=== PATIENT | female | born 1940 | race Caucasian/White ===

== ENCOUNTER 2018-10-25 10:39 | Inpatient (IN) | payer MEDICARE, OTHER ==
[2018-10-25 12:16] LABS: ABNORMAL IP MESSAGE 1; HEMOGLOBIN 12.7 g/dl (12.0-16.0); MEAN CORPUSCULAR HEMOGLOBIN 31.1 pg (29.0-33.0); MEAN CORPUSCULAR HGB CONC 31.8 g/dl (32.0-37.0); MEAN PLATELET VOLUME 10.1 fl (7.4-10.4); PLATELET COUNT 110 10^3/UL (140-415); RED BLOOD COUNT 4.08 10^6/ul (4.20-5.40); RED CELL DISTRIBUTION WIDTH 13.8 % (11.5-14.5)
[2018-10-25 12:16] LABS: WHITE BLOOD COUNT 2.6 10^3/ul (4.8-10.8)
[2018-10-25 12:22] LABS: ADD MAN DIFF? YES; POSITIVE DIFF @See below
[2018-10-25 12:27] LABS: INR 2.08; PROTIME 23.5 Sec (11.9-14.9); PT RATIO 1.8
[2018-10-25 12:28] LABS: PARTIAL THROMBOPLASTIN TIME 36.3 Sec (23.0-35.0)
[2018-10-25 12:31] LABS: ALANINE AMINOTRANSFERASE 116 IU/L (13-69); ALBUMIN 4.2 g/dl (3.3-4.9); ALBUMIN/GLOBULIN RATIO 1.16; ALKALINE PHOSPHATASE 160 IU/L (42-121); AMYLASE 113 U/L (11-123); ANION GAP 12 (5-13); ASPARTATE AMINO TRANSFERASE 123 IU/L (15-46); BILIRUBIN,INDIRECT 0.6 mg/dl (0-1.1); BILIRUBIN,TOTAL 0.6 mg/dl (0.2-1.3); BLOOD UREA NITROGEN 54 mg/dl (7-20); CALCIUM 9.1 mg/dl (8.4-10.2); CARBON DIOXIDE 23 mmol/L (21-31); CHLORIDE 108 mmol/L (97-110); CREATININE 2.23 mg/dl (0.44-1.00); GLUCOSE 85 mg/dl (70-220); LIPASE 87 U/L (23-300); POTASSIUM 5.1 mmol/L (3.5-5.1); SODIUM 143 mmol/L (135-144); TOTAL PROTEIN 7.8 g/dl (6.1-8.1)
[2018-10-25] MEDS: IPRATROPIUM (NEB) 0.5 MG/2.5 ML AMP INH (12:40)
[2018-10-25] MEDS: ALBUTEROL 0.5% (NEB) 2.5 MG/0.5 ML AMP INH (12:40)
[2018-10-25 13:00] LABS: ANISOCYTOSIS 1+ (0-0); BAND NEUTROPHILS #M 0.6 10^3/ul (0.0-0.6); BAND NEUTROPHILS % (M) 24 % (0-4); EOSINOPHILS % (M) 2 % (0-7); LYMPHOCYTES #M 0.6 10^3/ul (0.8-2.9); LYMPHOCYTES % (M) 24 % (15-51); MONOCYTES % (M) 1 % (0-11); PLATELET ESTIMATE DECREASED; POIKILOCYTOSIS 1+ (0-0); POLYCHROMASIA 3+ (0-0); SEG NEUT #M 1.3 10^3/ul (1.6-7.5); SEGMENTED NEUTROPHILS (M) % 50 % (39-77); SMUDGE%M 3 % (0-0); TEAR DROP CELLS 1+ (0-0)
[2018-10-25] MEDS ORDERED: ACETAMINOPHEN 325 MG TAB PO (13:30)
[2018-10-25] MEDS ORDERED: ONDANSETRON 4 MG INJ IV ×2 (13:30→14:00)
[2018-10-25 13:46] LABS: B-TYPE NATRIURETIC PEPTIDE 8390 PG/ML (0-450)
[2018-10-25] MEDS ORDERED: HYDROCODONE/APAP (5/325) TAB PO (14:00)
[2018-10-25] MEDS ORDERED: NACL 0.9% 3 ML SYG IV (14:00)
[2018-10-25] MEDS ORDERED: morphine 2 MG INJ IV (14:00)
[2018-10-25] MEDS: FUROSEMIDE 40 MG INJ IV (14:40)
[2018-10-25] MEDS: SOD CHLORIDE 0.9% 500 ML IV (14:41)
[2018-10-25] MEDS: ASPIRIN 325 MG TAB PO (14:41)
[2018-10-25 14:53] LABS: ADD UMIC YES; UR ASCORBIC ACID NEGATIVE (NEGATIVE); UR BACTERIA FEW /HPF (NONE SEEN); UR BILIRUBIN (Dip) NEGATIVE (NEGATIVE); UR BLOOD (Dip) 3+ mg/dL (NEGATIVE); UR CLARITY CLOUDY (CLEAR); UR COLOR YELLOW (YELLOW); UR GLUCOSE (Dip) NEGATIVE (NEGATIVE); UR KETONES (Dip) NEGATIVE (NEGATIVE); UR LEUKOCYTE ESTERASE (Dip) NEGATIVE Leu/ul (NEGATIVE); UR NITRITE (Dip) NEGATIVE (NEGATIVE); UR NONSQUAMOUS EPITHELIAL CELL 1 /HPF (NONE SEEN); UR RBC > 182 /HPF (0-5); UR SPECIFIC GRAVITY (Dip) 1.014 (1.003-1.030); UR SQUAMOUS EPITHELIAL CELL FEW /HPF (FEW); UR TOTAL PROTEIN (Dip) NEGATIVE (NEGATIVE); UR UROBILINOGEN (Dip) NEGATIVE (NEGATIVE); UR WBC 6 /HPF (0-5)
[2018-10-25] MEDS: ACETAMINOPHEN 325 MG TAB PO (16:12)
[2018-10-25] MEDS: SOD CHLORIDE 0.9% 1,000 ML IV (16:12)
[2018-10-25 18:41] LABS: TROPONIN-I 0.284 ng/ml (0.000-0.120)
[2018-10-25 19:41] LABS: CREATININE,URINE RANDOM 176.16 mg/dl (20-320)
[2018-10-25 19:41] LABS: SODIUM,URINE RANDOM 31 mmol/L (30-90)
[2018-10-26] MEDS: PIPER-TAZO 3.375 GM IV (PMX) 100 ML IVPB ×3 (01:11→17:29)
[2018-10-26 01:12] LABS: CREATINE KINASE 192 IU/L (23-200)
[2018-10-26 01:20] LABS: CK INDEX 0.8; CK-MB 1.55 ng/ml (0.0-2.4)
[2018-10-26 01:52] LABS: TROPONIN-I 0.156 ng/ml (0.000-0.120)
[2018-10-26 06:47] LABS: HAAIG REFLEX REFLEX FILED
[2018-10-26 06:49] LABS: WHITE BLOOD COUNT 22.3 10^3/ul (4.8-10.8)
[2018-10-26 06:49] LABS: ABNORMAL IP MESSAGE 1; HEMATOCRIT 33.1 % (37.0-47.0); HEMOGLOBIN 10.6 g/dl (12.0-16.0); MEAN CORPUSCULAR HEMOGLOBIN 31.2 pg (29.0-33.0); MEAN CORPUSCULAR VOLUME 97.4 fl (82.0-101.0); MEAN PLATELET VOLUME 10.2 fl (7.4-10.4); PLATELET COUNT 94 10^3/UL (140-415); RED CELL DISTRIBUTION WIDTH 14.3 % (11.5-14.5)
[2018-10-26 06:58] LABS: ADD MAN DIFF? YES; POSITIVE DIFF @See below
[2018-10-26 07:13] LABS: ALANINE AMINOTRANSFERASE 85 IU/L (13-69); ALBUMIN 3.1 g/dl (3.3-4.9); ALBUMIN/GLOBULIN RATIO 1.19; ALKALINE PHOSPHATASE 69 IU/L (42-121); ANION GAP 8 (5-13); ASPARTATE AMINO TRANSFERASE 69 IU/L (15-46); BILIRUBIN,INDIRECT 0.5 mg/dl (0-1.1); BILIRUBIN,TOTAL 0.5 mg/dl (0.2-1.3); BLOOD UREA NITROGEN 65 mg/dl (7-20); CALCIUM 8.2 mg/dl (8.4-10.2); CARBON DIOXIDE 20 mmol/L (21-31); CHLORIDE 114 mmol/L (97-110); CHOL/HDL RATIO 4.8 RATIO; CHOLESTEROL 155 mg/dl (100-200); CREATININE 2.41 mg/dl (0.44-1.00); GLUCOSE 136 mg/dl (70-220); HDL CHOLESTEROL 32 mg/dl (33-92); LDL CHOLESTEROL,CALCULATED 67 mg/dl; MAGNESIUM 2.2 mg/dl (1.7-2.5); PHOSPHORUS 3.5 mg/dl (2.5-4.9); POTASSIUM 4.1 mmol/L (3.5-5.1); SODIUM 142 mmol/L (135-144); TOTAL PROTEIN 5.7 g/dl (6.1-8.1); TRIGLYCERIDES 281 mg/dl (0-149)
[2018-10-26 07:24] LABS: TROPONIN-I 0.094 ng/ml (0.000-0.120)
[2018-10-26 07:27] LABS: FREE THYROXINE INDEX (Calc) 2.26 ug/ml (0.65-3.89); T3 UPTAKE 45.1 % (23.5-40.5)
[2018-10-26 07:40] LABS: HEPATITIS B SURFACE ANTIGEN NEGATIVE (NEGATIVE)
[2018-10-26 07:41] LABS: CK INDEX 1.1; CREATINE KINASE 305 IU/L (23-200)
[2018-10-26 07:53] LABS: BAND NEUTROPHILS #M 4.2 10^3/ul (0.0-0.6); BAND NEUTROPHILS % (M) 19 % (0-4); BASOPHIL #M 0.4 10^3/ul (0.0-0.0); BASOPHILS % (M) 2 % (0-2); LYMPHOCYTES #M 2.8 10^3/ul (0.8-2.9); LYMPHOCYTES % (M) 13 % (15-51); PLATELET ESTIMATE DECREASED; REACTIVE LYMPHOCYTES #M 0.2 10^3/ul (0.0-0.0); REACTIVE LYMPHOCYTES% (M) 1 % (0-0); SEG NEUT #M 15.4 10^3/ul (1.6-7.5); SEGMENTED NEUTROPHILS (M) % 65 % (39-77); SMUDGE%M 10 % (0-0)
[2018-10-26 07:58] LABS: HEPATITIS B CORE ANTIBODY NEGATIVE (NEGATIVE); HEPATITIS C VIRAL ANTIBODY NEGATIVE (NEGATIVE)
[2018-10-26 08:00] LABS: HEMOGLOBIN A1C 6.1 % (0-5.9)
[2018-10-26 08:17] LABS: FOLATE > 20.0 ng/ml (2.8-20.0)
[2018-10-26] MEDS ORDERED: LOSARTAN 50 MG TAB PO (09:00)
[2018-10-26] MEDS: ASPIRIN (EC) 81 MG TAB PO (09:15)
[2018-10-26] MEDS: FUROSEMIDE 40 MG TAB PO (09:16)
[2018-10-26] MEDS: CHOLECALCIFEROL 2,000 UNIT CAP PO (09:17)
[2018-10-26] MEDS: SOD CHLORIDE 0.9% 1,000 ML IV ×2 (09:22→14:45)
[2018-10-26 12:40] LABS: CREATINE KINASE 321 IU/L (23-200)
[2018-10-26 12:52] LABS: CK INDEX 1.3; CK-MB 4.16 ng/ml (0.0-2.4); TROPONIN-I 0.075 ng/ml (0.000-0.120)
[2018-10-26 16:34] LABS: ADD UMIC YES; UR ASCORBIC ACID NEGATIVE (NEGATIVE); UR BACTERIA FEW /HPF (NONE SEEN); UR BILIRUBIN (Dip) NEGATIVE (NEGATIVE); UR BLOOD (Dip) 3+ mg/dL (NEGATIVE); UR CLARITY CLEAR (CLEAR); UR COLOR STRAW (YELLOW); UR GLUCOSE (Dip) NEGATIVE (NEGATIVE); UR KETONES (Dip) NEGATIVE (NEGATIVE); UR LEUKOCYTE ESTERASE (Dip) NEGATIVE Leu/ul (NEGATIVE); UR NITRITE (Dip) NEGATIVE (NEGATIVE); UR RBC 101 /HPF (0-5); UR SPECIFIC GRAVITY (Dip) 1.008 (1.003-1.030); UR TOTAL PROTEIN (Dip) NEGATIVE (NEGATIVE); UR UROBILINOGEN (Dip) NEGATIVE (NEGATIVE); UR WBC 2 /HPF (0-5)
[2018-10-26] MEDS: WARFARIN 2.5 MG TAB PO (17:57)
[2018-10-27] MEDS: PIPER-TAZO 3.375 GM IV (PMX) 100 ML IVPB ×2 (02:16→09:28)
[2018-10-27] MEDS: SOD CHLORIDE 0.9% 1,000 ML IV ×2 (03:50→06:58)
[2018-10-27 07:56] LABS: WHITE BLOOD COUNT 16.5 10^3/ul (4.8-10.8)
[2018-10-27 07:56] LABS: ABNORMAL IP MESSAGE 1; HEMOGLOBIN 10.3 g/dl (12.0-16.0); MEAN CORPUSCULAR HEMOGLOBIN 31.2 pg (29.0-33.0); MEAN CORPUSCULAR HGB CONC 32.2 g/dl (32.0-37.0); MEAN PLATELET VOLUME 10.5 fl (7.4-10.4); PLATELET COUNT 95 10^3/UL (140-415); RED CELL DISTRIBUTION WIDTH 14.3 % (11.5-14.5)
[2018-10-27 08:00] LABS: POSITIVE DIFF @See below
[2018-10-27 08:01] LABS: ADD MAN DIFF? YES
[2018-10-27] MEDS: ASPIRIN (EC) 81 MG TAB PO (08:03)
[2018-10-27] MEDS: CHOLECALCIFEROL 2,000 UNIT CAP PO (08:03)
[2018-10-27] MEDS: DOCUSATE SODIUM 100 MG CAP PO (08:04)
[2018-10-27 08:57] LABS: ANION GAP 7 (5-13); BLOOD UREA NITROGEN 58 mg/dl (7-20); CALCIUM 8.2 mg/dl (8.4-10.2); CARBON DIOXIDE 22 mmol/L (21-31); CHLORIDE 113 mmol/L (97-110); CREATININE 1.96 mg/dl (0.44-1.00); GLUCOSE 110 mg/dl (70-220); MAGNESIUM 2.2 mg/dl (1.7-2.5); PHOSPHORUS 2.7 mg/dl (2.5-4.9); SODIUM 142 mmol/L (135-144)
[2018-10-27 09:14] LABS: BAND NEUTROPHILS #M 0.6 10^3/ul (0.0-0.6); BAND NEUTROPHILS % (M) 4 % (0-4); GIANT THROMBO% (M) 1 % (0-0); LYMPHOCYTES #M 0.9 10^3/ul (0.8-2.9); LYMPHOCYTES % (M) 6 % (15-51); PLATELET ESTIMATE DECREASED; SEG NEUT #M 14.9 10^3/ul (1.6-7.5); SEGMENTED NEUTROPHILS (M) % 90 % (39-77); SMUDGE%M 4 % (0-0)
[2018-10-27] MEDS: CEFEPIME 1GM/50 ML (PMX) 50 ML IVPB (14:35)
[2018-10-27] MEDS: CEFTRIAXONE 2 GM/50 ML (PMX) 50 ML IVPB (15:30)
[2018-10-27] MEDS: WARFARIN 2.5 MG TAB PO (17:14)
[2018-10-27] MEDS: ZOLPIDEM 5 MG TAB PO (22:07)
[2018-10-27] MEDS: FUROSEMIDE 20 MG INJ IV (22:56)
[2018-10-27] MEDS ORDERED: ALBUTEROL/IPRATROPIUM (NEB) 3 ML AMP HHN ×2 (23:00)
[2018-10-27 23:11] LABS: Allen Test ACCEPTAB; Arterial Base Excess -4.6 mmol/L (-3.0-3); Arterial COHb 0.3 % (0.0-3.0); Arterial Fraction of Oxyhgb 97.4 % (93.0-99.0); Arterial HCO3 20.4 mmol/L (22.0-26.0); Arterial MetHb 0.3 % (0.0-1.5); Arterial pCO2 37.5 mmhg (35-45); MODE MASK - SIMPLE; Site Right Radial
[2018-10-28] MEDS: ALBUTEROL/IPRATROPIUM (NEB) 3 ML AMP HHN ×6 (00:45→20:37)
[2018-10-28 01:33] LABS: CREATINE KINASE 69 IU/L (23-200)
[2018-10-28 01:44] LABS: CK INDEX 1.3
[2018-10-28] MEDS: CHOLECALCIFEROL 2,000 UNIT CAP PO (08:25)
[2018-10-28] MEDS: ASPIRIN (EC) 81 MG TAB PO (08:26)
[2018-10-28 08:40] LABS: CREATINE KINASE 48 IU/L (23-200)
[2018-10-28 08:42] LABS: ANION GAP 8 (5-13); BLOOD UREA NITROGEN 47 mg/dl (7-20); CALCIUM 8.7 mg/dl (8.4-10.2); CARBON DIOXIDE 24 mmol/L (21-31); CHLORIDE 110 mmol/L (97-110); CREATININE 1.54 mg/dl (0.44-1.00); GLUCOSE 127 mg/dl (70-220); MAGNESIUM 2.1 mg/dl (1.7-2.5); PHOSPHORUS 3.4 mg/dl (2.5-4.9); SODIUM 142 mmol/L (135-144)
[2018-10-28 08:47] LABS: CK INDEX 1.2; CK-MB 0.59 ng/ml (0.0-2.4)
[2018-10-28 08:54] LABS: TROPONIN-I 0.043 ng/ml (0.000-0.120)
[2018-10-28] MEDS: REGADENOSON 0.4 MG/5 ML SYG (11:23)
[2018-10-28 14:08] LABS: CREATININE, RANDOM URINE 166 mg/dL (20-275); MICROALBUMIN 8.2 mg/dL; MICROALBUMIN/CREATININE RATIO 49 (<30)
[2018-10-28] MEDS: WARFARIN 2.5 MG TAB PO (16:23)
[2018-10-28] MEDS: CEFTRIAXONE 2 GM/50 ML (PMX) 50 ML IVPB (16:23)
[2018-10-28] MEDS: ACETAMINOPHEN 325 MG TAB PO (22:41)
[2018-10-29] MEDS: ALBUTEROL/IPRATROPIUM (NEB) 3 ML AMP HHN ×6 (01:00→20:41)
[2018-10-29 07:14] LABS: INR 3.63; PROTIME 36.1 Sec (11.9-14.9); PT RATIO 2.8
[2018-10-29 07:15] LABS: ANION GAP 7 (5-13); BLOOD UREA NITROGEN 36 mg/dl (7-20); CALCIUM 8.7 mg/dl (8.4-10.2); CARBON DIOXIDE 22 mmol/L (21-31); CHLORIDE 112 mmol/L (97-110); CREATININE 1.13 mg/dl (0.44-1.00); GLUCOSE 104 mg/dl (70-220); MAGNESIUM 2.1 mg/dl (1.7-2.5); PHOSPHORUS 2.6 mg/dl (2.5-4.9); POTASSIUM 4.2 mmol/L (3.5-5.1); SODIUM 141 mmol/L (135-144)
[2018-10-29] MEDS: CHOLECALCIFEROL 2,000 UNIT CAP PO (08:14)
[2018-10-29] MEDS: ASPIRIN (EC) 81 MG TAB PO (08:14)
[2018-10-29 08:49] LABS: ADD MAN DIFF? NO
[2018-10-29 08:52] LABS: BASOPHILS % 0.5 % (0.0-2.0); EOSINOPHILS # 0.3 10^3/ul (0.0-0.5); EOSINOPHILS % 3.4 % (0.0-7.0); HEMATOCRIT 32.7 % (37.0-47.0); HEMOGLOBIN 10.6 g/dl (12.0-16.0); LYMPHOCYTES # 1.7 10^3/ul (0.8-2.9); LYMPHOCYTES % 20.3 % (15.0-51.0); MEAN CORPUSCULAR HEMOGLOBIN 31.2 pg (29.0-33.0); MEAN CORPUSCULAR HGB CONC 32.4 g/dl (32.0-37.0); MEAN CORPUSCULAR VOLUME 96.2 fl (82.0-101.0); MONOCYTE # 0.9 10^3/ul (0.3-0.9); NEUTROPHIL # 5.3 10^3/ul (1.6-7.5); NEUTROPHILS % 64.2 % (39.0-77.0); PLATELET COUNT 108 10^3/UL (140-415); RED CELL DISTRIBUTION WIDTH 13.6 % (11.5-14.5)
[2018-10-29 08:52] LABS: WHITE BLOOD COUNT 8.3 10^3/ul (4.8-10.8)
[2018-10-29] MEDS: FUROSEMIDE 20 MG TAB PO (09:42)
[2018-10-29] MEDS: CEFTRIAXONE 2 GM/50 ML (PMX) 50 ML IVPB (15:27)
[2018-10-30] MEDS: ALBUTEROL/IPRATROPIUM (NEB) 3 ML AMP HHN ×5 (00:37→16:12)
[2018-10-30] MEDS: ACETAMINOPHEN 325 MG TAB PO (04:10)
[2018-10-30] MEDS: hydrALAzine 20 MG INJ IV (05:07)
[2018-10-30 08:45] LABS: INR 2.49; PT RATIO 2.1
[2018-10-30 08:55] LABS: ANION GAP 8 (5-13); BLOOD UREA NITROGEN 27 mg/dl (7-20); CARBON DIOXIDE 25 mmol/L (21-31); CHLORIDE 108 mmol/L (97-110); GLUCOSE 115 mg/dl (70-220); MAGNESIUM 1.9 mg/dl (1.7-2.5); PHOSPHORUS 2.7 mg/dl (2.5-4.9); POTASSIUM 4.1 mmol/L (3.5-5.1); SODIUM 141 mmol/L (135-144)
[2018-10-30] MEDS: CHOLECALCIFEROL 2,000 UNIT CAP PO (09:43)
[2018-10-30] MEDS: ASPIRIN (EC) 81 MG TAB PO (09:43)
[2018-10-30] MEDS: FUROSEMIDE 20 MG TAB PO (09:44)
[2018-10-30] MEDS: CEFTRIAXONE 2 GM/50 ML (PMX) 50 ML IVPB (16:18)
[2018-10-30] MEDS: WARFARIN 1 MG TAB PO (16:23)
== END 2018-10-30 19:35 | disposition home or self-care (01) | DRG 871 ==
LOC: TEL 18:32 → E/R 10:39 → TEL 13:02
PROC: 5A09357 Assistance with Respiratory Ventilation, Less than 24 Consecutive Hours, Continuous Positive Airway Pressure (ICD-10-PCS; principal; 2018-10-27)
DX: A41.51 Sepsis due to Escherichia coli [E. coli] (principal); I21.A1 Myocardial infarction type 2; I50.41 Acute combined systolic (congestive) and diastolic (congestive) heart failure; J96.01 Acute respiratory failure with hypoxia; N17.9 Acute kidney failure, unspecified; I13.0 Hypertensive heart and chronic kidney disease with heart failure and stage 1 through stage 4 chronic kidney disease, or unspecified chronic kidney disease; N39.0 Urinary tract infection, site not specified; R65.20 Severe sepsis without septic shock; D63.1 Anemia in chronic kidney disease; E66.9 Obesity, unspecified; I25.5 Ischemic cardiomyopathy; I25.2 Old myocardial infarction; I25.10 Atherosclerotic heart disease of native coronary artery without angina pectoris; K80.20 Calculus of gallbladder without cholecystitis without obstruction; N18.9 Chronic kidney disease, unspecified; R73.03 Prediabetes; R79.1 Abnormal coagulation profile; R94.31 Abnormal electrocardiogram [ECG] [EKG]; B96.20 Unspecified Escherichia coli [E. coli] as the cause of diseases classified elsewhere; Z68.33 Body mass index [BMI] 33.0-33.9, adult; Z95.810 Presence of automatic (implantable) cardiac defibrillator; Z79.01 Long term (current) use of anticoagulants; Z79.82 Long term (current) use of aspirin
CPT/HCPCS: 36600; 71045; 76700; 78452; 80048; 80053; 80061; 81001; 81003; 82043; 82150; 82550; 82553; 82607; 82746; 82803; 83036; 83690; 83735; 83880; 84100; 84155; 84300; 84436; 84479; 84484; 85025; 85378; 85610; 85730; 86704; 86709; 86803; 87040-91; 87086; 87340; 93005; 93017; 93306; 94640; 94644; 94660; 94664; 97116; 97161; 97530; 99285-25